=== PATIENT | male | born 1995 | race African-American/Black ===

== ENCOUNTER → 2021-01-16 | Day surgery (SDC) | payer OTHER ==
[~2021-01-16] MED LIST: ABILIFY
== END | disposition home or self-care (01) ==
LOC: FAS 08:56
DX: K29.50 Unspecified chronic gastritis without bleeding (principal); K21.9 Gastro-esophageal reflux disease without esophagitis; K64.4 Residual hemorrhoidal skin tags; F31.9 Bipolar disorder, unspecified; F20.9 Schizophrenia, unspecified; J45.909 Unspecified asthma, uncomplicated; F17.210 Nicotine dependence, cigarettes, uncomplicated; Z88.8 Allergy status to other drugs, medicaments and biological substances; Z79.899 Other long term (current) drug therapy
CPT/HCPCS: 88305; J2250; J7120